=== PATIENT | female | born 1945 | race Caucasian/White ===

== ENCOUNTER 2016-03-05 14:57 | Emergency (ER) | payer OTHER, MEDICARE ==
[~2016-03-05] VITALS: Ht 165.1 cm; Wt 51.8 kg
[~2016-03-05 14:57] MED LIST: ARIP10TA14 PO; DIAZ10TA3 PO; PARO20TA5 PO; VENL150T3 PO
[2016-03-05 15:01] VITALS: BP 165/90; PULSE 127; RESP 20; O2SAT 94
--- NOTE | 2016-03-05 18:49 | ED.REPORT ---
HPI-URI / Cough / Cold Date of Service Mar 05, 2016 ED Provider: Keyona Alcantara MD 70 year old female with a hx of anxiety presents to the ED due to waxing and waning flu/URI symptoms for the last week. Her symptoms started with chills, lethargy, fatigue, cough and a headache. These symptoms seemed to improve until 4 days ago when she developed symptoms of weakness, mild fever. She was unable to get out of bed for 2 days. Her cough has been lingering since onset. She has been able to tolerate fluids. Pt denies pain. Nursing Notes Stated Complaint: COUGH Chief Complaint: FLU/Cold Symptoms Nursing Notes Reviewed: Yes Allergies: Coded Allergies: No Known Allergies (Unverified , 08/30/15) Scheduled Aripiprazole (Abilify) 10 Mg Tablet 10 MG PO DAILY Azithromycin (Zithromax) 250 Mg Tablet 250 MG PO DAILY Diazepam (Diazepam) 10 Mg Tablet 10 MG PO TID Paroxetine (Paroxetine) 20 Mg Tablet 20 MG PO HS Venlafaxine ER (Venlafaxine ER) 150 Mg Tab.er.24 150 MG PO DAILY General Time Seen by MD: 18:48 Chief Complaint Cough, non-productive, Fatigue, Fever, Upper resp infection Hx Obtained From: Patient Arrived By: Walk-in Onset Occurred: More than a week ago... Symptom Duration: Since onset Severity: Current: No pain currently Associated with: Reports: Cough, Fever, Denies: Shortness of breath, Vomiting Pertinent Negative: Relieved by nothing Past Medical History Past Medical History Anxiety Past Surgical History None Smoking History Former Smoker Social History Alcohol Use: Denies alcohol use Drug Use: Denies drug use Ambulatory Status Independent Review of Systems Basic Review of Systems Cardiovascular: No chest pain, No dyspnea on exertion, No orthopnea, No parox noct dyspnea, No palpitations Psychiatric: Normal thought content Constitutional: Reports: Chills, Fatigue, Fever, Lethargy, Weakness - generalized Ears / Nose / Throat: Reports: Nasal congestion Respiratory: Reports: Non-productive cough, Denies: Shortness of breath Neurologic: Reports: Headache, Weakness Complete sys rev & neg: except as marked. Physical Exam Initial Vital Signs Vital Signs (First) Date Time Temp Pulse Resp B/P Pulse Ox O2 Delivery O2 Flow Rate FiO2 03/05/16 15:01 37.2 127 20 165/90 94 Room Air Initial VS: Reviewed, Vital signs abnormal Head / Eyes: Atraumatic, Normocephalic, PERRL Neck: Supple, Full range of motion Abdomen / GI: Soft, Non-tender Extremities: Vascular intact, Neuro intact Skin: Warm, Dry, No cyanosis Neurologic: Alert, Oriented, Nonfocal Psychiatric: Mood/affect normal, Behavior normal, Normal thought content General/Constitutional: Awake, Alert ENT: Airway patent Mouth: Positive: Mucous membranes dry Respiratory / Chest: No respiratory distress Rales on R Cardiovascular: Heart rate NL (90 at 1949), Regular rhythm, Heart sounds NL, No murmurs, Peripheral circulation NL Interpretation & Diagnostics Lab Results Interpretation Result Diagram: 03/05/16 1906 03/05/16 1906 Test 03/05/16 19:06 White Blood Count 15.3th/mm3 (3.8-10.1) Red Blood Count 3.86mil/mm3 (3.90-5.20) Hemoglobin 11.5g/dL (12.0-15.6) Hematocrit 34.4% (35.0-46.0) Mean Corpuscular Volume 89.1fL (81-100) Mean Corpuscular Hemoglobin 29.8pg (27.0-35.0) Mean Corpuscular Hemoglobin Concent 33.4% (32.0-37.0) Red Cell Distribution Width 12.1% (12.3-15.4) Platelet Count 319bil/L (150-400) Neutrophils (%) (Auto) 87.2% (40-74) Lymphocytes (%) (Auto) 6.6% (14-46) Monocytes (%) (Auto) 5.7% (4-12) Eosinophils (%) (Auto) 0.1% (0-5) Basophils (%) (Auto) 0.1% (0-3) Sodium Level 138mEq/L (134-144) Potassium Level 3.2mEq/L (3.5-5.2) Chloride Level 100mEq/L (97-108) Carbon Dioxide Level 24mmol/L (18-29) Blood Urea Nitrogen 10mg/dL (8-27) Creatinine 0.67mg/dL (0.57-1.00) Estimat Glomerular Filtration Rate 125mL/min (>59) Glucose Level 137mg/dL (60-99) Lactic Acid Level 1.1mmol/L (0.4-2.0) Calcium Level 8.5mg/dL (8.5-10.1) Hold Karimi Top Tube Received (Received) Lab Results Interpretation: Negative flu swab General Lab Results Interp 1: Labs reviewed X-Ray Chest Interpretation Chest Xray Interpretation: IMPRESSION: Findings suspicious for right lower lobe pneumonia. Dictated by: Sd Bernal M.D. on 03/05/2016 at 19:29 View: AP & lat Interpretation / Wet Read by: Interpret - Radiologist Re-Eval/Medical Decision Med Decision/Clinical Course The patient presents with upper respiratory symptoms and is having an increase in fatigue after she was doing better. Her evaluation reveals pneumonia. The patient is not hypoxic and had normalization of her vital signs is safe for discharge. Re-Evaluation/Progress #1: Time of Eval: 19:46 Re-Evaluation/Progress Note: Pt updated of imaging and lab results. Re-Evaluation/Progress #2: Time of Eval: 21:39 Patient Status: Condition improved Re-Evaluation/Progress Note: Discussed plan for discharge and follow up. All questions addressed. Counseled Regarding: Diagnosis, Lab results, Need for follow-up, When/why to return to ED Discharge & Departure Impression: Primary Impression: Pneumonia Pneumonia type: due to unspecified organism Laterality: right Lung location : lower lobe of lung Qualified Code: J18.9 - Pneumonia, unspecified organism Disposition: Home Discharge Condition All VS Reviewed: Yes Condition: Improved Patient Instructions: Community-acquired Pneumonia (ED) Additional Instructions: Get plenty of rest and drink frequent fluids. It should take you several weeks to get back to normal. However, you should not get worse. Return to the ER for increased difficulty breathing or for any new or concerning symptoms. Make a follow up in the morning with your doctor for re-evaluation. Referrals: Heather Torres (PCP) Scribe Attestation Portions of this note were transcribed by Tigist Saab. I, (Dr. Alcantara) personally performed the history, physical exam and medical decision-making; I reviewed and confirmed the accuracy of the information in the transcribed note. Signed by: Tigist Saab. 03/05/2016, 1109 copies to: Heather Torres Jena M MD Mar 05, 2016 18:49 Tigist Saab Mar 05, 2016 19:55
[2016-03-05] MEDS ORDERED: 0.9% Sodium Chloride 1,000 ML IV ONE (18:50)
[2016-03-05 19:17] LABS: BASOPHILS % (AUTO) 0.1 % (0-3); EOSINOPHILS % (AUTO) 0.1 % (0-5); MONOCYTES % (AUTO) 5.7 % (4-12); Mean Corpuscular Hemoglobin 29.8 pg (27.0-35.0); Mean Corpuscular Volume 89.1 fL (81-100); NEUTROPHILS % (AUTO) 87.2 % (40-74); Platelet Count 319 bil/L (150-400)
--- NOTE | 2016-03-05 19:31 | DRSVH ---
PROCEDURE: X-RAY CHEST, TWO VIEWS ([id number]) INDICATIONS: 70 year-old female with productive cough and fevers. TECHNIQUE: 2 views of the chest were acquired. COMPARISON: None. FINDINGS: Surgical changes and devices: None. Lungs and pleura: No pleural effusions or pneumothorax. Patchy posterior right lung base opacities a re present, more apparent on the lateral view. Mediastinum: Mediastinal contours are normal. Heart size is normal. Bones and chest wall: No suspicious bony abnormalities. Soft tissues appear unremarkable. IMPRESSION: Findings suspicious for right lower lobe pneumonia. Dictated by: Sd Bernal M.D. on 03/05/2016 at 19:29 Approved by: Sd Bernal M.D. on 03/05/2016 at 19:29
[2016-03-05] MEDS ORDERED: cefTRIAXone Inj 2,000 MG in IV Premix 1 EACH IV ONE (19:45)
[2016-03-05] MEDS ORDERED: Azithromycin Inj 500 MG in Dextrose 5% w/Vial Mate 250 ML IV ONE (19:45)
[2016-03-05] MEDS ORDERED: Potassium Chloride 20 mEq SR Tablet PO ONE (21:25)
[2016-03-05] MEDS ORDERED: ZIT250 PO (21:30)
[2016-03-05 22:56] VITALS: BP 126/70; PULSE 92; RESP 16; O2SAT 95
== END 2016-03-05 22:55 | disposition home or self-care (01) ==
LOC: SED 14:57
DX: J18.9 Pneumonia, unspecified organism (principal); Z87.891 Personal history of nicotine dependence
CPT/HCPCS: 36415; 71020; 80048; 83605; 85025; 87040; 87804; 96361; 96365; 96368; 99285; J0456; J0696; J7030